=== PATIENT | male | born 1995 | race Hispanic/Latino ===

== ENCOUNTER 2019-02-04 10:04 | Emergency (ER) | payer OTHER, SELFPAY ==
[2019-02-04] MEDS ORDERED: Ondansetron PF 4 MG/2 ML Vial ONE ×2 (10:23→11:04)
[2019-02-04] MEDS ORDERED: Fentanyl 100 MCG/2 ML VIAL ONE (10:23)
[2019-02-04 10:34] LABS: #Basophils 0.1 thou/uL (0.0-0.2); #Eosinphils 0.2 thou/uL (0.0-0.7); #Lymphocytes 1.9 thou/uL (1.20-3.40); #Monocytes 0.7 thou/uL (0.11-0.59); #Neutrophils 5.6 thou/uL (1.40-6.50); %Basophils 0.8 % (0.0-1.0); %Eosinophils 2.5 % (0.0-10.0); %Lymphocytes 22.9 % (21.0-51.0); %Monocytes 7.9 % (0.0-10.0); Hemoglobin 14.5 g/dL (14.0-18.0); Mean Corpuscular Hemoglobin 30.1 pg (27.0-31.0); Mean Corpuscular Volume 88.5 fL (78.0-98.0); Mean Platelet Volume 8.9 fL (7.4-10.4); Platelet Count 222 thou/uL (130-400); Red Blood Cell (RBC) Count 4.83 mill/uL (4.70-6.10); White Blood Cell (WBC) Count 8.5 thou/uL (4.8-10.8)
[2019-02-04 10:41] LABS: INR-International Normal Ratio 1.1; Prothrombin Time 13.7 SEC (12.0-14.7)
[2019-02-04 10:47] LABS: Alcohol Less than 10 mg/dL (Less than 10); Anion Gap 15 mmol/L (10-20); BUN (Urea Nitrogen) 16 mg/dL (8.9-20.6); Calc. Creatinine Clearance 0 mL/min (70-130); Calcium 9.4 mg/dL (7.8-10.44); Carbon Dioxide 24 mmol/L (22-29); Chloride 108 mmol/L (98-107); Estimated GFR-MDRD Greater than 90; Glucose 117 mg/dL (70-105); Potassium 3.9 mmol/L (3.5-5.1); Sodium 143 mmol/L (136-145)
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
[2019-02-04] MEDS ORDERED: Promethazine HCl 25 MG/ML VIAL ONE (11:40)
[2019-02-04] MEDS ORDERED: Morphine 10 MG/ML VIAL ONE (12:00)
== END 2019-02-04 12:33 | disposition home or self-care (01) ==
LOC: SCSER 10:04
DX: S06.0X9A Concussion with loss of consciousness of unspecified duration, initial encounter (principal); F17.220 Nicotine dependence, chewing tobacco, uncomplicated; V86.59XA Driver of other special all-terrain or other off-road motor vehicle injured in nontraffic accident, initial encounter
CPT/HCPCS: 70450; 71045; 72125; 80048; 80307; 85025; 85610; 85730; 96374; 96375; J2270; J2405; J2550; J3010